=== PATIENT | male | born 1940 | race Caucasian/White ===

== ENCOUNTER 2019-07-29 19:38 | Emergency (ER) | payer BC, MEDICARE, OTHER ==
[~2019-07-29] VITALS: Ht 182.9 cm; Wt 101.6 kg
--- NOTE | 2019-07-29 19:40 | NUR ---
TO BED 9 BIB EMS C/O R ELBOW PAIN WITH ABRASION, R HIP PAIN, R FOOT PAIN WITH ABRASIONS/P SLIP AND FALL LANDED ON HIS R SIDE. PT DENIES KO. RECEIVED PT AAOX4 NO ACUTE DISTRESS NOTED, RESP EVEN AND UNLABORED. PUPILS PERRLA, PT ABLE TO MOVE ALL EXTREMITIES WELL WITH BILATERAL EQUAL STAVE AND BOLT EQUALIZER. PLACE PT ON CARDIAC MONITORING, CONTINUOUS POX. PENDING ER MD PORTILLO. Addendum: 07/29/19 at 7 by AGUSTINA PT ALSO C/O R KNEE PAIN WITH ABRASION.
--- NOTE | 2019-07-29 19:56 | NUR ---
ER AT BEDSIDE TO EVAL PT WTIH ORDERS RECEIVED. WILL CARRY OUT ORDERS.
--- NOTE | 2019-07-29 20:07 | NUR ---
NEIGHBOR OF PT AT BEDSIDE
--- NOTE | 2019-07-29 20:09 | NUR ---
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
--- NOTE | 2019-07-29 21:44 | NUR ---
PT FAILED TRIAL OF AMBULATION WITH THE USE OF WALKER. PT C/O BACK SPASMS. ER MADE AWARE W/ ORDERS RECEIVED.
[2019-07-29] MEDS ORDERED: METHOCARBAMOL (500MG) 500 MG TABLET ONE (21:45)
[2019-07-29] MEDS ORDERED: METHOCARBAMOL (500MG) 500 MG TABLET PO ONE (22:00)
--- NOTE | 2019-07-29 22:35 | NUR ---
PT NEIGHBOR (CELL),
[2019-07-30 01:35] LABS: BASOPHILS # (AUTO) 0.1 /CMM (0.0-0.2); BASOPHILS % (AUTO) 0.8 % (0.0-2.0); EOSINOPHILS % (AUTO) 0.9 % (0.0-6.0); HEMATOCRIT 41 % (39-51); HEMOGLOBIN 13.7 g/dL (13.5-17.5); LYMPHOCYTES # (AUTO) 1.3 /CMM (0.8-4.8); LYMPHOCYTES % (AUTO) 11.8 % (20.0-44.0); MEAN CORPUSCULAR HGB CONC 34 g/dl (31.0-36.0); MEAN CORPUSCULAR VOLUME 92 fL (80-96); MONOCYTES # (AUTO) 0.8 /CMM (0.1-1.30); MONOCYTES % (AUTO) 6.9 % (2.0-12.0); NEUTROPHILS % (AUTO) 79.6 % (43.0-81.0); PLATELET COUNT (AUTO) 173 /CMM (150-450); RED BLOOD CELL COUNT(AUTO) 4.46 MIL/uL (4.5-6.0); WHITE BLOOD COUNT (AUTO) 11.3 K/uL (4.3-11.0)
[2019-07-30 01:43] LABS: CALCIUM, SERUM 8.9 mg/dL (8.5-10.1); CREATININE 1.3 mg/dL (0.6-1.3); POTASSIUM 4.1 mmol/L (3.5-5.1)
[2019-07-30] MEDS ORDERED: MORPHINE SULFATE INJ 4 MG/ML DISP.SYRIN ONE (03:51)
[2019-07-30] MEDS ORDERED: MORPHINE SULFATE INJ 2 MG/ML DISP.SYRIN IV ONE (04:00)
--- NOTE | 2019-07-30 05:25 | NUR ---
PT ACCEPTED TO [facility] BY DR CRUZ. BED 424-1, # FOR REPORT [phone]. AMBULANCE ETA 45 MIN.
--- NOTE | 2019-07-30 05:42 | NUR ---
UPDATED ETA: [facility] [id number]
--- NOTE | 2019-07-30 05:46 | NUR ---
REPORT GIVEN TO JOSE ALEMAN RN FOR [facility] AT [facility] 424- BED 1
--- NOTE | 2019-07-30 07:10 | NUR ---
PATIENT SLEEPING, EASILY AROUSABLE THROUGH TACTILE AND VERBAL STIMULI. NO SOB. BREATHING EVENLY AND UNLABORED.
--- NOTE | 2019-07-30 07:30 | NUR ---
PT PICKED UP BY AMBULANCE PERSONEL
--- NOTE | 2019-07-30 07:32 | NUR ---
REPORT GIVEN TO EMT TRANSPORT.
[2019-07-30 07:33] VITALS: BP 124/73
== END 2019-07-30 07:33 | disposition short-term general hospital (02) ==
LOC: ER 19:40
DX: S72.114A Nondisplaced fracture of greater trochanter of right femur, initial encounter for closed fracture (principal); S83.8X1A Sprain of other specified parts of right knee, initial encounter; S50.311A Abrasion of right elbow, initial encounter; S90.511A Abrasion, right ankle, initial encounter; M16.11 Unilateral primary osteoarthritis, right hip; I70.90 Unspecified atherosclerosis; I10 Essential (primary) hypertension; E11.9 Type 2 diabetes mellitus without complications; Z98.890 Other specified postprocedural states; Z60.2 Problems related to living alone; W01.0XXA Fall on same level from slipping, tripping and stumbling without subsequent striking against object, initial encounter; Y93.89 Activity, other specified; Y92.89 Other specified places as the place of occurrence of the external cause; Y99.8 Other external cause status
CPT/HCPCS: 36415; 72170; 73564; 73700; 80048; 85025; 96374; 99285; J2270

== ENCOUNTER 2019-09-01 22:54 | Emergency (ER) | payer OTHER ==
[~2019-09-01] VITALS: Ht 188 cm; Wt 94.8 kg
--- NOTE | 2019-09-01 23:02 | NUR ---
PT BIBRA FROM HOME C/O R HIP PAIN. PT ABLE TO LIFT HIS RIGHT FOOT WITHOUT ANY DISTRESS. PLACED ON MONITOR AND PULSE OX. NO ACUTE DISTRESS NOTED. AWAITING FOR MD FOR EVAL.
[2019-09-01] MEDS ORDERED: IV NS 0.9% 1,000 ML BAG IV ONE (23:30)
[2019-09-01 23:36] LABS: BASOPHILS # (AUTO) 0.1 /CMM (0.0-0.2); BASOPHILS % (AUTO) 0.7 % (0.0-2.0); EOSINOPHILS % (AUTO) 2.4 % (0.0-6.0); HEMATOCRIT 41 % (39-51); HEMOGLOBIN 13.3 g/dL (13.5-17.5); LYMPHOCYTES # (AUTO) 1.4 /CMM (0.8-4.8); LYMPHOCYTES % (AUTO) 11.9 % (20.0-44.0); MEAN CORPUSCULAR HGB CONC 33 g/dl (31.0-36.0); MEAN CORPUSCULAR VOLUME 91 fL (80-96); MONOCYTES # (AUTO) 0.9 /CMM (0.1-1.30); MONOCYTES % (AUTO) 7.5 % (2.0-12.0); NEUTROPHILS % (AUTO) 77.5 % (43.0-81.0); PLATELET COUNT (AUTO) 208 /CMM (150-450); RED BLOOD CELL COUNT(AUTO) 4.45 MIL/uL (4.5-6.0); WHITE BLOOD COUNT (AUTO) 11.6 K/uL (4.3-11.0)
[2019-09-02 00:02] LABS: CALCIUM, SERUM 9.3 mg/dL (8.5-10.1); CARBON DIOXIDE 25 mmol/L (21-32); CHLORIDE 108 mmol/L (98-107); CREATININE 1.9 mg/dL (0.6-1.3); GLUCOSE 143 mg/dL (74-106); POTASSIUM 3.7 mmol/L (3.5-5.1); SODIUM SERUM 144 mmol/L (136-145); UREA NITROGEN, BLOOD 38 mg/dL (7-18)
--- NOTE | 2019-09-02 00:27 | NUR ---
Patient is resting comfortably in bed. Easily aroused. VSS.
--- NOTE | 2019-09-02 02:57 | NUR ---
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 PT GOING TO [employer].
--- NOTE | 2019-09-02 03:17 | NUR ---
DR. VIRK ON THE PHONE WITH JONNY LEMUS MD
--- NOTE | 2019-09-02 03:23 | NUR ---
PEPE RADHA. JASMINA "HELPS HIM WITH DECISIONS"
--- NOTE | 2019-09-02 03:27 | NUR ---
Patient is resting comfortably in bed. Easily aroused. VSS.
--- NOTE | 2019-09-02 03:34 | NUR ---
PER AVIATION MAINTENANCE INSTRUCTOR, NO BED AVAILABLE AT THIS TIME AT [facility] PT WILL BE TRANSFERRED TO [facility] PENDING BED AVAILABILITY
--- NOTE | 2019-09-02 04:49 | NUR ---
Patient is resting comfortably in bed with eyes closed. Easily aroused. VSS
--- NOTE | 2019-09-02 05:11 | NUR ---
TRANSFER INFORMATION: PT WILL BE TRANSFERRED TO [facility] PER INSURANCE REQUEST BED ASSIGNMENT: 301-A NUMBER FOR REPORT: [phone] NURSE FOR REPORT: JOSIAH HOFFMANN AMBULANCE ETA 0700 WITH [facility]
--- NOTE | 2019-09-02 05:55 | NUR ---
GAVE REPORT TO JOSIAH HOFFMANN FROM [facility]
[2019-09-02 07:16] VITALS: BP 133/60
--- NOTE | 2019-09-02 07:16 | NUR ---
GAVE REPORT TO [facility] FOR TRANSPORTATION [facility]
== END 2019-09-02 07:19 | disposition short-term general hospital (02) ==
LOC: ER 22:55
DX: S72.091A Other fracture of head and neck of right femur, initial encounter for closed fracture (principal); I10 Essential (primary) hypertension; E11.9 Type 2 diabetes mellitus without complications; Z98.890 Other specified postprocedural states; Z60.2 Problems related to living alone; W18.39XA Other fall on same level, initial encounter; Y93.89 Activity, other specified; Y92.89 Other specified places as the place of occurrence of the external cause; Y99.8 Other external cause status
CPT/HCPCS: 36415; 71045; 73502; 80048; 84484; 85025; 85730; 93005; 99285; J7030 ×2